=== PATIENT | female | born 1960 | race Caucasian/White ===

== ENCOUNTER 2020-06-17 11:24 | Emergency (ER) | payer OTHER ==
[~2020-06-17] VITALS: Ht 165.1 cm; Wt 93.9 kg
[2020-06-17] MEDS ORDERED: BENICAR20 MG PO ×2 (11:34→12:48)
--- NOTE | 2020-06-17 11:45 | Emergency Department Note ---
History of Present Illnes History of Present Illness Chief Complaint: General Medicine Complaints History of Present Illness This is a 60 year old female, with history of hypertension, who was at her dentist office this morning for a dental procedure, when her blood pressure was noted to be 170/107. The blood pressure remained elevated, despite rechecking it several times. Patient was sent here, for further evaluation. Patient states that she did have some chest tightness this morning when she awoke, and she admits to feeling anxious, in anticipation of the dental procedure. She has a mild headache, but states that, "she has a headache every day." She does give a history of anxiety. She denies any shortness of breath, dizziness, palpitations, nausea, vomiting, visual changes, or paresthesias. Patient did take her blood pressure medicine this morning. She takes Olmesartan 40 mg 1/2 tablet daily and Metoprolol 25 mg by mouth daily. She states that she has recently gained weight, and that she was previously on a full tablet of the Olmesartan, when her weight was higher. Patient is followed by Dr. Larson, at [facility]. Patient has no personal history of heart disease, and her dad of a heart attack in his 80s. Historian: Patient Arrival Mode: Car Gear Lapping Machine Operator Required: No Onset (how long ago): hour(s) (1) Location: general Radiation: Reports non-radiation Severity: mild Onset quality: sudden Duration (how long): hour(s) (1) Timing of current episode: constant Progression: improving (blood pressure is down to 157/92;) Chronicity: new Context: Denies recent illness, Denies recent surgery, Denies trauma/injury, Denies new medications Relieving factors: none Exacerbating factors: none Associated symptoms: Reports headaches, Reports loss of appetite; Denies cough, Denies fever/chills, Denies nausea/vomiting, Denies shortness of breath, Denies weakness Treatments prior to arrival: none Risk factors: obesity, HTN, Past Medical/Family History Physician Review I have reviewed the patient's past medical and family history. Any updates have been documented here. Past Medical History Recent Fever: No Clinical Suspicion of Infectio: No New/Unexplained Change in Ment: No Past Medical History: Hypertension Past Surgical History: Cholecysctectomy, Hysterectomy, Bariatric Surgery Other Surgery: Breast augmentation Arm surgery wrist surgery Social History Smoking Cessation: Never Smoker Counseling Performed: No Alcohol Use: Social Any Illegal Drug Use: No TB Exposure/Symptoms: No Physically hurt or threatened: No Family History Family history of heart diseas: No Other Any Pre-Existing Lines (PICC,: No Review of Systems Review of Systems Constitutional: Denies chills, Denies fever EENTM: Denies eye pain, Denies blurred vision, Denies throat pain Cardiovascular: Reports chest pain (mild chest tightness;); Denies palpitations, Denies syncope Respiratory: Denies cough, Denies pain with cough, Denies dyspnea, Denies dyspnea on exertion, Denies snoring Gastrointestinal: Denies abdominal pain, Denies diarrhea Genitourinary: Denies dysuria, Denies frequency Musculoskeletal: Denies joint swelling, Denies neck pain Integumentary: Denies change in color Neurological: Reports headache; Denies numbness, Denies paresthesia, Denies tingling, Denies weakness Psychological: Reports anxiety Endocrine: Reports no symptoms Hematological/Lymphatic: Reports no symptoms Review of other systems: All other systems negative Physical Exam Related Data Allergies: Coded Allergies: azithromycin (Verified Allergy, Intermediate, rash /hives, 06/17/20) Triage Vital Signs Vital Signs Date Time Temp Pulse Resp B/P (MAP) Pulse Ox O2 Delivery O2 Flow Rate FiO2 06/17/20 11:27 98.7 83 16 157/92 100 Room Air Vital signs reviewed: Yes Physical Exam CONSTITUTIONAL Constitutional: Present well-developed, Present well-nourished, Present obese; Absent distressed, Absent ill appearing HENT HENT: Present normocephalic, Present atraumatic, Present oropharynx clear/moist, Present nose normal; Absent nasal congestion HENT L/R: Present left ext ear normal, Present right ext ear normal EYES Eyes: Reports PERRL, Reports conjunctivae normal, Reports EOM normal, Reports lids normal NECK Neck: Present ROM normal; Absent JVD, Absent cervical adenopathy PULMONARY Pulmonary: Present effort normal, Present breath sounds normal CARDIOVASCULAR Cardiovascular: Present regular rhythm, Present heart sounds normal, Present capillary refill normal, Present normal rate; Absent murmur GASTROINTESTINAL Abdominal: Present soft, Present nontender, Present bowel sounds normal GENITOURINARY Genitourinary: Present exam deferred SKIN Skin: Present warm, Present dry; Absent rash MUSCULOSKELETAL Musculoskeletal: Absent edema, Absent tenderness NEUROLOGICAL Neurological: Present alert, Present oriented x 3 PSYCHOLOGICAL Psychological: Present mood/affect normal, Present behavior normal Procedures 12 Lead ECG Interpretation ECG Interpretation : ECG: ECG 1 Gear Lapping Machine Operator: Interpreted by ED physician Date: Jun 17, 2020 Time: 12:12 Prior ECG tracings: not available for review Rhythm: sinus rhythm Rate: normal BPM: 82 QRS axis: normal ST segments normal: Yes T waves normal: Yes Other findings: no other findings Clinical Impression: normal ECG Assessment & Plan Medical Decision Making MDM - Patient with uncontrolled blood pressure, while at a dental appointment, along with some chest tightness while feeling anxious about the dental visit. Patient has a normal EKG and is currently asymptomatic. Blood pressure was acceptable, though slightly elevated on evaluation in the ED. Patient minutes to gaining weight lately, which likely lead to an increase in her blood pressure. - Recommend that you take a full Olmesartan 40 mg daily, for your blood pressure, in addition to the Metoprolol ER he taking. - Recommend a low sodium diet, do not add salt to any of your food, and seek low-salt options, which will also help lower your blood pressure. - Increase water intake, to at least 816 ounce bottles per day. - Follow-up with Dr. Larson in one week, to recheck her blood pressure, and for clearance for your dental procedure. - Return to ER if you develop severe headache, chest pain, shortness of breath, dizziness, or other concerning symptoms. Assessment & Plan Final Impression: (1) Uncontrolled hypertension Depart Disposition: HOME, SELF-CARE Last Vital Signs Date Time Temp Pulse Resp B/P (MAP) Pulse Ox O2 Delivery O2 Flow Rate FiO2 06/17/20 11:27 98.7 83 16 157/92 100 Room Air Home Meds Active Scripts Olmesartan Medoxomil (BENICAR) 20 Mg Tablet, 40 MG PO DAILY for hypertension, #30 TAB 0 Refills Prov:SUZAN DOWNING MD 06/17/20 Reported Medications Olmesartan Medoxomil (BENICAR) 20 Mg Tablet, 10 MG PO DAILY, #30 TAB 06/17/20 SUZAN DOWNING MD Jun 17, 2020 11:45
[2020-06-17 12:56] VITALS: BP 137/85
== END 2020-06-17 13:03 | disposition home or self-care (01) ==
LOC: FSED 11:50
DX: I10 Essential (primary) hypertension (principal); R51.9 Headache, unspecified
CPT/HCPCS: 93005; 99282

== ENCOUNTER 2020-06-19 14:49 | Emergency (ER) | payer OTHER ==
[~2020-06-19] VITALS: Ht 165.1 cm; Wt 93.9 kg
[~2020-06-19 14:49] MED LIST: BENICAR20 MG PO
[2020-06-19] MEDS ORDERED: PANTOPRAZOLE 40 MG 10ML VIAL IV STA (15:09)
[2020-06-19] MEDS ORDERED: HYDRALAZINE HCL 20 MG/ML VIAL IV STA (15:09)
[2020-06-19] MEDS ORDERED: LORAZEPAM INJ 2 MG/ML VIAL IV ONE (15:15)
[2020-06-19 15:33] LABS: BASOPHILS # (AUTO) 0.1 (0.0-0.1); EOSINOPHILS # (AUTO) 0.5 (0.0-0.4); EOSINOPHILS % 8.1 % (0.0-6.0); HEMATOCRIT 39.3 % (34.2-44.1); HEMOGLOBIN 12.9 g/dL (12.0-16.0); LYMPHOCYTES # (AUTO) 2.6 (1.0-3.2); LYMPHOCYTES % 42.3 % (18.0-39.1); MEAN CORPUSCULAR HEMOGLOBIN 30.7 pg (28-32); MEAN CORPUSCULAR HGB CONC 32.8 g/dL (31-35); MEAN CORPUSCULAR VOLUME 93.6 fL (81-99); MONOCYTES # (AUTO) 0.6 (0.2-0.8); MONOCYTES % 10.1 % (4.4-11.3); NEUTROPHILS # (AUTO) 2.3 (2.1-6.9); NEUTROPHILS % 38.3 % (38.7-80.0); PLATELET COUNT 304 x10e3/uL (140-360); RED CELL DISTRIBUTION WIDTH 12.6 % (11.7-14.4)
[2020-06-19 15:44] LABS: INR 0.89; PARTIAL THROMBOPLASTIN TIME 27.7 seconds (23.8-35.5); PROTHROMBIN TIME 12.5 seconds (11.9-14.5)
[2020-06-19 15:51] LABS: ALANINE AMINOTRANSFERASE 29 IU/L (0-55); ALKALINE PHOSPHATASE 80 IU/L (40-150); BLOOD UREA NITROGEN 18 mg/dL (7-26); BUN/CREATININE RATIO 20 (6-25); CALCIUM 9.2 mg/dL (8.4-10.2); CARBON DIOXIDE 24 mmol/L (22-29); CHLORIDE 106 mmol/L (98-107); CREATINE KINASE 38 IU/L (29-168); CREATININE, SERUM 0.91 mg/dL (0.57-1.11); EST GLOMERULAR FILTRATION RATE > 60 ML/MIN (60-); GLUCOSE 124 mg/dL (74-118); SODIUM 139 mmol/L (136-145)
[2020-06-19 16:02] LABS: ALBUMIN/GLOBULIN RATIO 1.5 (0.8-2.0)
[2020-06-19 17:48] VITALS: BP 142/102
== END 2020-06-19 17:50 | disposition home or self-care (01) ==
LOC: ER 15:21
DX: R07.89 Other chest pain (principal); I10 Essential (primary) hypertension; F41.9 Anxiety disorder, unspecified; K21.9 Gastro-esophageal reflux disease without esophagitis
CPT/HCPCS: 36415; 71045; 80053; 82550; 82553; 83880; 84484; 85025; 85610; 85730; 99284; C9113; J0360; J2060